=== PATIENT | female | born 1950 | race Caucasian/White ===

== ENCOUNTER 2016-09-24 22:52 | Inpatient (IN) | payer MEDICARE, MEDICAID ==
[~2016-09-24 22:52] MED LIST: ACETAMINOPHEN325 M2 PO; ASPIRIN EC81 M1 PO; BACITRACIN1 G1 TOP; CETIRIZINE HCL10 M1 PO; COREG25 MG PO; COUMADIN1 M1 PO; COUMADIN1 MG PO; COUMADIN5 M2 PO; COUMADIN6 MG PO; ECOTRIN81 M2 PO; FERREX 150150 MG PO; GLIMEPIRIDE4 MG PO; GLUCOPHAGE PO; HORSE CHESTNUT300 MG PO; IPRAT-ALBUT 0.5-3 ML IH; LASIX40 M1 PO; LASIX40 MG PO; LEVAQUIN750 M1 PO; LEVOFLOXACIN500 MG PO; LISINOPRIL5 M1 PO; LISINOPRIL5 MG PO; LOVENOX40 MG/0.4 SQ; PLAVIX75 M1 PO; PREDNISONE10 M2 PO; PROTONIX40 M2 PO; PROVENTIL HFA6.7 G1; SIMVASTATIN40 MG PO; SOTALOL HCL120 MG PO; SPIRIVA18 MC1 PO; SYMBICORT 160-1 PUFF INH
[2016-09-25] MEDS ORDERED: AMIODARONE HCL200 M1 PO (01:46)
[2016-09-25] MEDS ORDERED: COUMADIN7.5 M1 PO (01:46)
[2016-09-25] MEDS ORDERED: LIPITOR20 M1 PO (01:56)
[2016-09-25] MEDS ORDERED: TYLENOL325 M2 PO (01:56)
[2016-09-25] MEDS ORDERED: AMARYL2 M1 PO (01:57)
[2016-09-25] MEDS ORDERED: DEMADEX20 M1 PO (01:57)
[2016-09-25] MEDS ORDERED: VENTOLIN HFA18 G2 PO (02:01)
[2016-09-25 07:39] LABS: BASO % 0.2 % (0-2); EOS % 0.5 % (0-7); HCT-HEMATOCRIT 36.1 % (34.0-49.0); HGB-HEMOGLOBIN 11.3 gm/dl (12.0-15.5); IMMATURE GRANULOCYTES ABSOLUTE 0.05 tho/cmm (0-0.03); IMMATURE GRANULOCYTES PERCENT 0.6 % (0-0.3); LYMPH % 6.7 % (20-45); LYMPH ABSOLUTE COUNT 0.6 tho/cmm (0.8-4.5); MCH (MEAN CORPUSCULAR HGB) 29.4 pg (28.0-32.0); MCHC MEAN CORPUSCULAR HGB CONC 31.3 % (32.0-36.0); MONO % 7.7 % (0-12); MONOCYTE ABSOLUTE COUNT 0.6 tho/cmm (0.0-1.2); NEUTROPHIL ABSOLUTE COUNT 6.9 tho/cmm (1.6-8.0); NEUTROPHIL-AUTOMATED 6.9 tho/cmm (1.6-8.0); NEUTROPHILS % 84.3 % (40-80); PLATELET COUNT 255 tho/cmm (150-450); RED BLOOD COUNT 3.84 mil/cmm (4.00-5.20); RED CELL DISTRIBUTION WIDTH 19.2 % (12.4-16.4); WHITE BLOOD COUNT 8.2 tho/cmm (4.0-10.0)
[2016-09-25 07:47] LABS: INR 3.4 INR (0.9-1.1); PROTHROMBIN TIME 40.6 SECONDS (9.0-13.6)
[2016-09-25 08:04] LABS: ALB/GLOB RATIO 0.9 (0.8-2.0); ALBUMIN 2.8 g/dl (3.5-5.0); ALKALINE PHOSPHATASE 150 U/L (33-138); ALT/SGPT 16 U/L (12-78); ANION GAP 12 mmol/L (0-20); AST/SGOT 13 U/L (10-40); BILIRUBIN,TOTAL 0.6 mg/dl (0-1.5); BLOOD UREA NITROGEN 29 mg/dl (6-24); CALCIUM 8.5 mg/dl (8.5-10.5); CARBON DIOXIDE-VENOUS 30 mmol/L (22-32); CHLORIDE 105 mmol/l (96-110); CREATININE 1.32 mg/dl (0.50-1.10); GLUCOSE 194 mg/dL (70-110); MAGNESIUM 1.6 mg/dl (1.8-2.6); POTASSIUM 4.2 mmol/L (3.7-5.1); SODIUM 143 mmol/L (135-145); eGFR VALUE FOR BLACK 48 mL/Min
[2016-09-25] MEDS ORDERED: ALBUTEROL2.5 MG/3 M INH (12:15)
[2016-09-25] MEDS ORDERED: IPRATROPIU0.2 MG/1 M INH (12:16)
[2016-09-25] MEDS ORDERED: SOTALOL120 M1 PO (12:17)
[2016-09-25] MEDS ORDERED: LASIX80 M1 PO (12:17)
[2016-09-25] MEDS ORDERED: PRINIVIL5 M1 PO (12:17)
[2016-09-25] MEDS ORDERED: ZOCOR40 M1 PO (12:17)
[2016-09-25] MEDS ORDERED: GLUCOPHAGE500 M3 PO (12:18)
[2016-09-25] MEDS ORDERED: VICODIN 5-3001 EAC2 PO (14:34)
[2016-09-25] MEDS ORDERED: NYAMYC15 GM TOP (14:34)
[2016-09-25] MEDS ORDERED: COUMADIN1 M1 PO (15:25)
[2016-09-26 07:53] LABS: ANION GAP 12 mmol/L (0-20); BLOOD UREA NITROGEN 30 mg/dl (6-24); CALCIUM 7.4 mg/dl (8.5-10.5); CARBON DIOXIDE-VENOUS 29 mmol/L (22-32); CHLORIDE 106 mmol/l (96-110); CREATININE 1.35 mg/dl (0.50-1.10); GLUCOSE 241 mg/dL (70-110); POTASSIUM 4.4 mmol/L (3.7-5.1); SODIUM 143 mmol/L (135-145); eGFR VALUE FOR BLACK 47 mL/Min
[2016-09-26 09:05] LABS: INR 3.4 INR (0.9-1.1); PROTHROMBIN TIME 40.5 SECONDS (9.0-13.6)
[2016-09-27 05:02] LABS: ANION GAP 12 mmol/L (0-20); BLOOD UREA NITROGEN 27 mg/dl (6-24); CARBON DIOXIDE-VENOUS 30 mmol/L (22-32); CHLORIDE 103 mmol/l (96-110); CREATININE 1.32 mg/dl (0.50-1.10); GLUCOSE 146 mg/dL (70-110); POTASSIUM 3.8 mmol/L (3.7-5.1); SODIUM 141 mmol/L (135-145); eGFR VALUE FOR BLACK 48 mL/Min
[2016-09-27 05:31] LABS: INR 2.6 INR (0.9-1.1); PROTHROMBIN TIME 31.3 SECONDS (9.0-13.6)
--- NOTE | 2016-09-27 14:58 | NUR ---
KESHAV Sutton reports pt able to transfer today to [facility] with [facility]. Called [facility] nurse, Megan Frost with [email or web address] Pt will transfer by van around 4:45. Pts share of cost has been met for this month, info given to Sariah.
[2016-09-27] MEDS ORDERED: NITROGLYCERIN0.4 M2 SL (16:10)
[2016-09-27] MEDS ORDERED: SENOKOT-S TABL1 EACH PO (16:13)
[2016-09-27] MEDS ORDERED: ROXANOL PO/SL (16:13)
== END 2016-09-27 17:00 | DRG 292 ==
LOC: PCUB 22:52
PROVIDERS: Nurse Practitioner Family; ADMIT Internal Medicine
PROC: 0W9B3ZZ Drainage of Left Pleural Cavity, Percutaneous Approach (ICD-10-PCS; principal; 2016-09-25)
DX: I11.0 Hypertensive heart disease with heart failure (principal); J96.10 Chronic respiratory failure, unspecified whether with hypoxia or hypercapnia; J90 Pleural effusion, not elsewhere classified; Z99.81 Dependence on supplemental oxygen; I42.9 Cardiomyopathy, unspecified; E11.9 Type 2 diabetes mellitus without complications; D64.9 Anemia, unspecified; I48.0 Paroxysmal atrial fibrillation; Z51.5 Encounter for palliative care; Z66 Do not resuscitate; I50.43 Acute on chronic combined systolic (congestive) and diastolic (congestive) heart failure; J44.9 Chronic obstructive pulmonary disease, unspecified; I25.10 Atherosclerotic heart disease of native coronary artery without angina pectoris; I73.9 Peripheral vascular disease, unspecified; Z88.1 Allergy status to other antibiotic agents; Z79.899 Other long term (current) drug therapy; Z79.01 Long term (current) use of anticoagulants; Z95.1 Presence of aortocoronary bypass graft; Z95.5 Presence of coronary angioplasty implant and graft
CPT/HCPCS: G8978-GP-CK; G8979-GP-CJ; G8987-GO-CJ; G8988-GO-CI; J1815; J1940